=== PATIENT | male | born 1975 | race Caucasian/White ===

== ENCOUNTER 2021-05-10 12:48 | Emergency (ER) | payer OTHER ==
--- OUTSIDE RECORDS SUMMARY | 2021-05-10 12:53 | XMS REPORT | Continuity of Care Document ---
:1975 Author Organization [facility] t Address [address] [place] [address] Care Team Providers Name Role Phone PCP, DOES NOT HAVE A Primary Care Physician Unavailable EBRAHIM Attending Clinician Unavailable Doctor Unassigned, Name Attending Clinician Unavailable SONG Attending Clinician Unavailable Payers Payer Name Policy Type Policy Number Effective Date Expiration Date Wilma SAWYER II [id number] 2021 00:00:00 Problems Condition Condition Condition Status Onset Resolution Last Treating Co mments Source Name Details Category Date Date Treatment Clinician Date No known No known Disease Unive rs active active ity of problems problems [facility] Allergies, Adverse Reactions, Alerts Allergy Allergy Status Severity Reaction(s) Onset Inactive Treating Comm ents Source Name Type Date Date Clinician NO KNOWN Drug Active Univers ALLERGIE Class ity of [facility] Social History Social Habit Start Date Stop Date Quantity Comments Source Exposure to Not sure [facility] SARS-CoV-2 [facility] (event) Tobacco use and 2021-05-07 2021-05-07 Current user [facility] exposure 00:00:00 00:00:00 Medical Branch Sex Assigned At [birth year] [facility] 00:00:00 00:00:00 Medical Branch Smoking Status Start Date Stop Date Source Former smoker 2021-05-07 00:00:00 2021-05-07 00:00:00 [facility] Medications Ordered Filled Start Stop Current Ordering Indication Dosage Frequency Signature Comments Components Source Medication Medication Date Date Medication? Clinician (SIG) Name Name chlorhexidi Yes [id number] Apply to [facility] 4 % 2-22 [id number] area(s) ity of external 00:00: once daily [facility] as liquid 00 as needed Medical for Wound Branch care. doxycycline Yes [id number] 100mg Take 1 Univers hyclate 100 -05-22 [id number] tablet by ity of mg tablet 00:00: 05:[place] [facility] daily for 14 days. Procedures Procedure Date / Time Performed Performing Clinician [facility] e ASSIGNMENT OF BENEFITS 2021-05-10 16:53:58 Doctor Unassigned, No [facility] Encounters Start End Encounter Admission Attending Care Care Encounter Source Date/Time Date/Time Type Type Clinicians Facility Department ID 2021-05-10 2021-05-10 Outpatient R WILLIAM [facility] [id number] Univers 11:00:00 11:00:00 [facility] 2021-05-10 2021-05-10 Outpatient R [facility] [id number] Univers 11:00:00 11:00:00 [id number] [facility] 2021-05-10 2021-05-10 [facility] [id number] Univers 11:00:00 11:00:00 [facility] 2021-05-10 2021-05-10 Orders Doctor SEGAL [id number] Univers 00:00:00 00:00:00 Only Unassigned, DIANA [id number] ity [facility] [id number] [facility] as [id number] [place] [address] Branch 2021-05-07 2021-05-07 [facility] [id number] Univers 15:00:00 15:19:30 DAVID [facility] Results This patient has no known results.
[2021-05-10 13:45] LABS: Absolute Lymphocytes (CBC) 3.2 K/uL (0.7-4.9); Hematocrit 49.6 % (39.6-49.0); Lymphocytes % 27.4 % (15.3-44.8); MPV 8.4 fL (7.6-11.3); RBC Red Blood Cell Count 5.69 M/uL (4.33-5.43)
--- NOTE | 2021-05-10 13:51 | RAD REPORT ---
EXAM DESCRIPTION: RAD - Foot Left 3 View - 05/10/2021 1:41 pm CLINICAL HISTORY: PAIN COMPARISON: <Comparisons> FINDINGS: No acute fracture. No malalignment. Calcaneal spurring IMPRESSION: No acute osseous abnormality involving the left foot.
[2021-05-10 13:57] LABS: Albumin 4.1 g/dL (3.4-5.0); Bilirubin Total 0.6 mg/dL (0.2-1.0); Potassium 3.8 mmol/L (3.5-5.1); Protein, Total 8.3 g/dL (6.4-8.2)
[2021-05-10] MEDS ORDERED: CLINDAMYCIN 600MG/D5W 600 MG/50 ML BAG IV ONE (14:00)
[2021-05-10] MEDS ORDERED: NA CHLORIDE 0.9% 1,000 ML ONE (14:13)
--- NOTE | 2021-05-10 14:35 | ER ---
Nurse's Notes [facility] Name: Varun Arteaga Age: 45 yrs Sex: Male : 1975 Arrival Date: 05/10/2021 Time: 12:50 Bed 2 Private MD: Diagnosis: Cellulitis of unspecified toe-Right foot Presentation: 05/10 13:03 Chief complaint: Patient states: Wound to middle toe on right foot and bottom of left jl7 foot, clinic prescribed doxycycline 3 days ago and it's just gotten worse. Coronavirus screen: At this time, the client does not indicate any symptoms associated with coronavirus-19. Ebola Screen: No symptoms or risks identified at this time. Initial Sepsis Screen: Does the patient meet any 2 criteria? No. Patient's initial sepsis screen is negative. Does the patient have a suspected source of infection? No. Patient's initial sepsis screen is negative. Risk Assessment: Do you want to hurt yourself or someone else? Patient reports no desire to harm self or others. Onset of symptoms was May 03, 2021. 13:03 Method Of Arrival: Ambulatory [facility] 13:03 Acuity: REMEDIOS 3 jl7 Triage Assessment: 13:04 General: Appears in no apparent distress. uncomfortable, Behavior is calm, cooperative, jl7 appropriate for age. Pain: Complains of pain in right foot and left foot Pain currently is 4 out of 10 on a pain scale. Historical: - Allergies: 13:04 No Known Allergies; jl7 - Home Meds: 13:04 lisinopril 40 mg Oral tab [Active]; jl7 - PMHx: 13:04 Hypertensive disorder; Gout; jl7 - PSHx: 13:04 None; jl7 - Immunization history:: Client reports having NOT received the Covid vaccine. - Social history:: Smoking status: Patient reports use of chewing tobacco. - Family history:: not pertinent. Screenin:26 Abuse screen: Denies threats or abuse. Nutritional screening: No deficits noted. vg1 Tuberculosis screening: No symptoms or risk factors identified. Fall Risk No fall in past 12 months (0 pts). No secondary diagnosis (0 pts). IV access (20 points). Ambulatory Aid- None/Bed Rest/Nurse Assist (0 pts). Gait- Normal/Bed Rest/Wheelchair (0 pts) Mental Status- Oriented to own ability (0 pts). Total Ritter Fall Scale indicates No Risk (0-24 pts). Assessment: 13:23 General: Appears in no apparent distress. comfortable, Behavior is calm, cooperative. vg1 Pain: Complains of pain in ball of left foot and Right middle toe Pain currently is 4 out of 10 on a pain scale. Pain began x 1 week. Neuro: Level of Consciousness is awake, alert, obeys commands, Oriented to person, place, time, situation. Cardiovascular: Patient's skin is warm and dry. Respiratory: Airway is patent Respiratory effort is even, unlabored. GI: No signs and/or symptoms were reported involving the gastrointestinal system. : No signs and/or symptoms were reported regarding the genitourinary system. EENT: No signs and/or symptoms were reported regarding the EENT system. Derm: Wound noted ball of left foot Bruising that is dark purple, on right third toe and Right third toenail. Musculoskeletal: Circulation, motion, and sensation intact. 14:23 Reassessment: Patient appears in no apparent distress at this time. No changes from vg1 previously documented assessment. Patient and/or family updated on plan of care and expected duration. Pain level reassessed. Patient is alert, oriented x 3, equal unlabored respirations, skin warm/dry/pink. 14:35 Reassessment: pt up for d/c; currently waiting for IV fluids to complete. vg1 Vital Signs: 13:03 BP 140 / 97; Pulse 105; Resp 17; Temp 98.2; Pulse Ox 95% ; Weight 133.81 kg; Height 5 jl7 ft. 11 in. (180.34 cm); Pain 4/10; 14:30 BP 148 / 91; Pulse 92; Resp 16; Pulse Ox 98% on R/A; vg1 15:15 BP 135 / 95; Pulse 90; Resp 16; Pulse Ox 98% ; vg1 13:03 Body Mass Index 41.14 (133.81 kg, 180.34 cm) jl7 ED Course: 12:50 Patient arrived in ED. mr 12:55 Reena Amos MD is Attending Physician. ma2 13:04 Triage completed. jl7 13:04 Arm band placed on right wrist. jl7 13:06 Laure Nicole, DEANN is Primary Nurse. vg1 13:26 Patient has correct armband on for positive identification. Bed in low position. Call vg1 light in reach. Side rails up X 1. 13:26 No provider procedures requiring assistance completed. Initial lab(s) drawn, by me, vg1 sent to lab. Inserted saline lock: 20 gauge in right antecubital area, using aseptic technique. Blood collected. 13:41 Foot Left 3 View XRAY In Process Unspecified. EDOK 14:35 Ancelmo Willard MD is Referral Physician. ma2 15:25 IV discontinued, intact, bleeding controlled, No redness/swelling at site. Pressure vg1 dressing applied. Administered Medications: 14:01 Drug: Clindamycin 600 mg Route: IVPB; Infused Over: 30 mins; Site: right antecubital; vg1 14:30 Follow up: IV Status: Completed infusion; IV Intake: 50ml vg1 14:14 Drug: NS 0.9% 1000 ml Route: IV; Rate: 1 bolus; Site: right antecubital; vg1 15:17 Follow up: IV Status: Completed infusion; IV Intake: 1000ml vg1 Intake: 14:30 IV: 50ml; Total: 50ml. vg1 15:17 IV: 1000ml; Total: 1050ml. vg1 Outcome: 14:35 Discharge ordered by . ma2 15:25 Discharged to home ambulatory. vg1 15:25 Condition: good 15:25 Discharge instructions given to patient, Instructed on discharge instructions, follow up and referral plans. medication usage, Demonstrated understanding of instructions, follow-up care, medications, Prescriptions given X 2. 15:26 Patient left the ED. vg1 Signatures: Dispatcher [employer] [facility] Delia Morton Jahala, RN RN cheryl7 Reena Amos MD MD ma2 Garcia, Victoria, RN RN vg1
--- NOTE | 2021-05-10 14:35 | EDPHYS ---
Physician Documentation [facility] Name: Varun Arteaga Age: 45 yrs Sex: Male : 1975 Arrival Date: 05/10/2021 Time: 12:50 Bed 2 Private MD: ED Physician Reena Amos HPI: 05/10 13:54 This 45 yrs old Male presents to ER via Ambulatory with complaints of Feet Infection. ma2 13:54 45-year-old male history of hypertension, patient had cellulitis of tip of right third ma2 t toe for 4 days, he saw PCP 2 days ago was prescribed doxycycline 100 twice daily, however there was no improvement so he returned to the ER today, patient does not have fever chills or palpitation, no history of diabetes, he also states he has a puppy that keep biting on that toe and he thinks that dog bite initiated the infection. Historical: - Allergies: 13:04 No Known Allergies; jl7 - Home Meds: 13:04 lisinopril 40 mg Oral tab [Active]; jl7 - PMHx: 13:04 Hypertensive disorder; Gout; jl7 - PSHx: 13:04 None; jl7 - Immunization history:: Client reports having NOT received the Covid vaccine. - Social history:: Smoking status: Patient reports use of chewing tobacco. - Family history:: not pertinent. ROS: 13:54 MS/extremity: Negative for contusion, decreased range of motion, deformity, ma2 paresthesias, tingling, warmth. 13:54 Constitutional: Negative for fever, chills, and weight loss. 13:54 All other systems are negative. Exam: 13:54 Constitutional: This is a well developed, well nourished patient who is awake, alert, ma2 and in no acute distress. Head/Face: Normocephalic, atraumatic. Eyes: Pupils equal round and reactive to light, extra-ocular motions intact. Lids and lashes normal. Conjunctiva and sclera are non-icteric and not injected. Cornea within normal limits. Periorbital areas with no swelling, redness, or edema. ENT: Nares patent. No nasal discharge, no septal abnormalities noted. Tympanic membranes are normal and external auditory canals are clear. Oropharynx with no redness, swelling, or masses, exudates, or evidence of obstruction, uvula midline. Mucous membranes moist. Neck: Trachea midline, no thyromegaly or masses palpated, and no cervical lymphadenopathy. Supple, full range of motion without nuchal rigidity, or vertebral point tenderness. No Meningismus. Chest/axilla: Normal chest wall appearance and motion. Nontender with no deformity. No lesions are appreciated. Cardiovascular: Regular rate and rhythm with a normal S1 and S2. No gallops, murmurs, or rubs. Normal PMI, no JVD. No pulse deficits. Respiratory: Lungs have equal breath sounds bilaterally, clear to auscultation and percussion. No rales, rhonchi or wheezes noted. No increased work of breathing, no retractions or nasal flaring. Abdomen/GI: Soft, non-tender, with normal bowel sounds. No distension or tympany. No guarding or rebound. No evidence of tenderness throughout. Back: No spinal tenderness. No costovertebral tenderness. Full range of motion. Skin: Warm, dry with normal turgor. Normal color with no rashes, no lesions, and no evidence of cellulitis. MS/ Extremity: Area of redness on top of right third toe, it is red no fluctuance, no pus, no signs of gangrene, area is tender as well. Otherwise pulses equal, no cyanosis. Neurovascular intact. Full, normal range of motion. Neuro: Awake and alert, GCS 15, oriented to person, place, time, and situation. Cranial nerves II-XII grossly intact. Motor strength 5/5 in all extremities. Sensory grossly intact. Cerebellar exam normal. Normal gait. Vital Signs: 13:03 BP 140 / 97; Pulse 105; Resp 17; Temp 98.2; Pulse Ox 95% ; Weight 133.81 kg; Height 5 jl7 ft. 11 in. (180.34 cm); Pain 4/10; 14:30 BP 148 / 91; Pulse 92; Resp 16; Pulse Ox 98% on R/A; vg1 15:15 BP 135 / 95; Pulse 90; Resp 16; Pulse Ox 98% ; vg1 13:03 Body Mass Index 41.14 (133.81 kg, 180.34 cm) 7 MDM: 12:55 Patient medically screened. ma2 13:58 Differential diagnosis: sprain, arthritis, gout, cellulitis. Data reviewed: vital ma2 signs, nurses notes. Counseling: I had a detailed discussion with the patient and/or guardian regarding: the historical points, exam findings, and any diagnostic results supporting the discharge/admit diagnosis, the presence of at least one elevated blood pressure reading (>120/80) during this emergency department visit, the need for outpatient follow up. Response to treatment: the patient's symptoms have markedly improved after treatment. 14:32 ED course: Patient has mild elevation white count, initially was tachycardic to 105, ma2 however pulse is 70 at this time patient does not have SIRS based on that. As noted in exam toe is not gangrenous, I explained to him the fact that white count is mildly elevated, he received IV clindamycin IV here, I offered to admit him for observation give him more doses of IV antibiotics, and recheck white count, and have orthopedic consult, although patient does not need amputation of toe at this time. However patient states he does not want to be admitted, he will take both antibiotics at home and keep a close eye on the toe, return to ER if there is no improvement in 2 days. And he will follow-up with orthopedic regardless in the next 2 days. I gave strict return precautions. 05/10 12:55 Order name: CBC with Diff; Complete Time: 13:52 [facility] 05/10 12:55 Order name: CMP; Complete Time: 14:05 mo2 05/10 12:56 Order name: Foot Left 3 View XRAY; Complete Time: 13:52 ma2 Administered Medications: 14:01 Drug: Clindamycin 600 mg Route: IVPB; Infused Over: 30 mins; Site: right antecubital; vg1 14:30 Follow up: IV Status: Completed infusion; IV Intake: 50ml vg1 14:14 Drug: NS 0.9% 1000 ml Route: IV; Rate: 1 bolus; Site: right antecubital; vg1 15:17 Follow up: IV Status: Completed infusion; IV Intake: 1000ml vg1 Disposition Summary: 05/10/21 14:35 Discharge Ordered Location: Home ma2 Condition: Stable ma2 Diagnosis - Cellulitis of unspecified toe - Right foot ma2 Followup: ma2 - With: - When: Tomorrow - Reason: If symptoms return, Continuance of care Discharge Instructions: - Discharge Summary Sheet ma2 - Cellulitis, Adult, [id number] ma2 Forms: - Medication Reconciliation Form ma2 - Thank You Letter ma2 - Antibiotic Education ma2 - Prescription Opioid Use ma2 - Work release form vg1 Prescriptions: - Augmentin 875-125 mg Oral Tablet - take 1 tablet by ORAL route every 12 hours for 10 days; 20 tablet; Refills: 0, ma2 Product Selection Permitted - Clindamycin HCl 300 mg Oral Capsule - take 1 capsule by ORAL route every 6 hours for 10 days; 40 capsule; Refills: 0, ma2 Product Selection Permitted Signatures: Dispatcher [employer] Channing Jenkins RN RN jl7 Reena Amos MD MD ma2 Laure Nicole RN RN vg1
[2021-05-10 15:52] VITALS: TEMP 98.2
[2021-05-10 15:53] VITALS: O2SAT 98
[2021-05-10 15:54] VITALS: BP 135/95
== END 2021-05-10 15:26 | disposition home or self-care (01) ==
LOC: ER 12:48
DX: L03.031 Cellulitis of right toe (principal); I10 Essential (primary) hypertension; F17.220 Nicotine dependence, chewing tobacco, uncomplicated
CPT/HCPCS: 96365; 96361; 85025; 36415; 80053; 73630; 99284; J7030

== ENCOUNTER 2021-05-17 16:12 | Emergency (ER) | payer OTHER ==
--- OUTSIDE RECORDS SUMMARY | 2021-05-17 16:15 | XMS REPORT | Continuity of Care Document ---
:1975 Author Organization [facility] t Address [address] [place] [address] Care Team Providers Name Role Phone PCP, DOES NOT HAVE A Primary Care Physician Unavailable FELA, A Attending Clinician Unavailable WILLIAM Attending Clinician Unavailable Doctor Unassigned, Name Attending Clinician Unavailable ROBBY Attending Clinician Unavailable Payers Payer Name Policy Type Policy Number Effective Date Expiration Date Wilma SAWYER II [id number] 2021 00:00:00 Problems Condition Condition Condition Status Onset Resolution Last Treating Co mments Source Name Details Category Date Date Treatment Clinician Date No known No known Disease Unive rs active active ity of problems problems [facility] Allergies, Adverse Reactions, Alerts Allergy Allergy Status Severity Reaction(s) Onset Inactive Treating Comm ents Source Name Type Date Date Clinician NO KNOWN Drug Active Univers ALLERGIE Class ity of [facility] Social History Social Habit Start Date Stop Date Quantity Comments Source Exposure to Not sure [facility] SARS-CoV-2 [facility] (event) Tobacco use and 2021-05-07 2021-05-07 Current user [facility] exposure 00:00:00 00:00:00 Medical Branch Sex Assigned At [birth year] [facility] 00:00:00 00:00:00 Medical Branch Smoking Status Start Date Stop Date Source Former smoker 2021-05-07 00:00:00 2021-05-07 00:00:00 [facility] Medications Ordered Filled Start Stop Current Ordering Indication Dosage Frequency Signature Comments Components Source Medication Medication Date Date Medication? Clinician (SIG) Name Name chlorhexidi Yes [id number] Apply to [facility] 4 % 2- [id number] area(s) ity of external 00:00: once daily [facility] as liquid 00 as needed Medical for Wound Branch care. doxycycline 2021- Yes [id number] 100mg Take 1 Univers hyclate 100 05-07 [id number] tablet by ity of mg tablet 00:00: 05:59 [place] (two[place] Medical times [place] daily for 14 days. Procedures Procedure Date / Time Performed Performing Clinician [facility] e ASSIGNMENT OF BENEFITS 2021-05-10 16:53:58 Doctor Unassigned, No [facility] Encounters Start End Encounter Admission Attending Care Care Encounter Source Date/Time Date/Time Type Type Clinicians Facility Department ID 2021-06-24 2021-06-24 Outpatient R FELA [facility] [id number] Univers 15:30:00 15:30:00 KEARA [id number] [facility] 2021-05-10 2021-05-10 [facility] [id number] Univers 11:00:00 11:00:00 [facility] 2021-05-10 2021-05-10 Outpatient R [facility] [id number] Univers 11:00:00 11:00:00 [id number] [facility] 2021-05-10 2021-05-10 [facility] [id number] Univers 11:00:00 11:00:00 [facility] 2021-05-10 2021-05-10 Orders Doctor SEGAL [id number] Univers 00:00:00 00:00:00 Only Unassigned, DIANA [id number] [facility] [id number] [facility] as [phone] [place] [address] Branch 2021-05-07 2021-05-07 [facility] [id number] Univers 15:00:00 15:19:30 DAVID [facility] Results This patient has no known results.
--- NOTE | 2021-05-17 17:13 | ER ---
Nurse's Notes [facility] Name: Varun Arteaga Jr Age: 45 yrs Sex: Male : 1975 Arrival Date: 05/17/2021 Time: 16:16 Bed 19 Private MD: Diagnosis: Cellulitis of left lower limb-foot;Cellulitis of right lower limb-foot Presentation: 05/17 16:32 Chief complaint: Patient states: Bilateral foot wounds that are getting worse. Was seen ww here last week for same complaint and he thought they were getting better but now getting worse and spreading in different spots. Coronavirus screen: Client denies travel out of the [place] in the last 14 days. Ebola Screen: Patient denies travel to an Ebola-affected area in the 21 days before illness onset. Initial Sepsis Screen: Does the patient meet any 2 criteria? No. Patient's initial sepsis screen is negative. Does the patient have a suspected source of infection? No. Patient's initial sepsis screen is negative. Risk Assessment: Do you want to hurt yourself or someone else? Patient reports no desire to harm self or others. Onset of symptoms is unknown. 16:32 Method Of Arrival: Ambulatory ww 16:32 Acuity: REMEDIOS 3 ww Triage Assessment: 16:34 General: Appears uncomfortable, Behavior is calm, cooperative. Pain: Complains of pain ww in right foot and left foot. Neuro: Level of Consciousness is awake, alert, obeys commands, Oriented to person, place, time, situation, Speech is normal. Cardiovascular: Capillary refill < 3 seconds. Respiratory: Airway is patent Respiratory effort is even, unlabored, Respiratory pattern is regular, symmetrical. GI: No signs and/or symptoms were reported involving the gastrointestinal system. : No signs and/or symptoms were reported regarding the genitourinary system. Historical: - Allergies: 16:34 No Known Allergies; ww - Home Meds: 16:34 lisinopril 40 mg Oral tab [Active]; ww - PMHx: 16:34 Gout; Hypertensive disorder; ww - PSHx: 16:34 Appendectomy; Cholecystectomy; right ear; ww - Immunization history:: Adult Immunizations up to date. - Social history:: Smoking status: Patient/guardian denies using tobacco. Screenin:54 Abuse screen: Denies threats or abuse. Denies injuries from another. Nutritional ab2 screening: No deficits noted. Tuberculosis screening: No symptoms or risk factors identified. Fall Risk None identified. Assessment: 16:54 General: Appears in no apparent distress. comfortable, Behavior is calm, cooperative, ab2 appropriate for age. Pain: Complains of pain in right foot and left foot. Neuro: Level of Consciousness is awake, alert, obeys commands, Oriented to person, place, time, situation, Appropriate for age Agent Broker are equal bilaterally Moves all extremities. Cardiovascular: No deficits noted. Denies chest pain, shortness of breath, Heart tones S1 S2 present Patient's skin is warm and dry. Respiratory: No deficits noted. Airway is patent Respiratory effort is even, unlabored, Respiratory pattern is regular, symmetrical. GI: No deficits noted. No signs and/or symptoms were reported involving the gastrointestinal system. : No deficits noted. No signs and/or symptoms were reported regarding the genitourinary system. EENT: No deficits noted. No signs and/or symptoms were reported regarding the EENT system. Derm: Skin is pink, warm \T\ dry. Vital Signs: 16:32 BP 136 / 88; Pulse 92; Resp 19; Temp 97.5; Pulse Ox 93% on R/A; Weight 133.81 kg; ww Height 5 ft. 11 in. (180.34 cm); Pain 5/10; 16:32 Body Mass Index 41.14 (133.81 kg, 180.34 cm) ww ED Course: 16:16 Patient arrived in ED. am2 16:34 Triage completed. ww 16:34 Arm band placed on left wrist. ww 16:37 Bam Wilder PA is [facility]. cp 16:37 Bam Diaz MD is Attending Physician. cp 16:53 Clement Joseph is Primary Nurse. ab2 17:39 Patient has correct armband on for positive identification. Call light in reach. Side ww rails up X 1. 17:39 No provider procedures requiring assistance completed. intact, bleeding controlled, No ww redness/swelling at site. Pressure dressing applied. Administered Medications: No medications were administered Outcome: 17:12 Discharge ordered by . cp 17:39 Discharged to home ambulatory. ww 17:39 Condition: stable 17:39 Discharge instructions given to patient, Instructed on discharge instructions, follow up and referral plans. safety practices, Demonstrated understanding of instructions, follow-up care, medications, Prescriptions given X 2. 17:40 Patient left the ED. ww Signatures: Bam Wilder PA PA cp Moreno, Amanda am2 Wood, Whitney, RN RN Clement Tejada
--- NOTE | 2021-05-17 17:13 | EDPHYS ---
Physician Documentation [facility] Name: Varun Arteaga Jr Age: 45 yrs Sex: Male : 1975 Arrival Date: 05/17/2021 Time: 16:16 Bed 19 Private MD: ED Physician Bam Diaz HPI: 05/17 17:03 This 45 yrs old Male presents to ER via Ambulatory with complaints of Wound Recheck - cp both feet. 17:03 Patient presents to ED for recheck of: cellulitis. The affected area is on the left cp foot and right foot. Previous treatment: the care was rendered at [facility], Treatment type: The patient's original treatment included oral antibiotics, Augmentin and Clindamycin. Progress: The patient reports Patient reports infection of right second toe is improving. Historical: - Allergies: 16:34 No Known Allergies; ww - Home Meds: 16:34 lisinopril 40 mg Oral tab [Active]; ww - PMHx: 16:34 Gout; Hypertensive disorder; ww - PSHx: 16:34 Appendectomy; Cholecystectomy; right ear; ww - Immunization history:: Adult Immunizations up to date. - Social history:: Smoking status: Patient/guardian denies using tobacco. ROS: 17:10 Constitutional: Negative for body aches, chills, fever, poor PO intake. cp 17:10 ENT: Negative for ear pain, sore throat, difficulty swallowing, difficulty handling secretions. 17:10 Cardiovascular: Negative for chest pain. 17:10 Respiratory: Negative for cough, shortness of breath, wheezing. 17:10 Abdomen/GI: Negative for abdominal pain, nausea, vomiting, and diarrhea. 17:10 Back: Negative for pain at rest, pain with movement. 17:10 Skin: Positive for cellulitis, of the right foot and left foot. 17:10 All other systems are negative. Exam: 17:11 Constitutional: The patient appears in no acute distress, alert, awake, cp non-diaphoretic, non-toxic, well developed, well nourished, obese. 17:11 Head/Face: Normocephalic, atraumatic. cp 17:11 Chest/axilla: Inspection: normal. 17:11 Cardiovascular: Rate: normal, Pulses: Pulses are 2+ in right dorsalis pedis artery and left dorsalis pedis artery. Edema: is not appreciated. 17:11 Respiratory: the patient does not display signs of respiratory distress, Respirations: normal. 17:11 Abdomen/GI: Inspection: abdomen appears normal, Palpation: abdomen is soft and non-tender, in all quadrants. 17:11 Skin: cellulitis, that is moderate, well demarcated, on the right second toe, multiple areas of erythema with small pustules noted to bilateral feet. Vital Signs: 16:32 BP 136 / 88; Pulse 92; Resp 19; Temp 97.5; Pulse Ox 93% on R/A; Weight 133.81 kg; ww Height 5 ft. 11 in. (180.34 cm); Pain 5/10; 16:32 Body Mass Index 41.14 (133.81 kg, 180.34 cm) ww MDM: 16:41 Patient medically screened. cp 17:12 Data reviewed: vital signs, nurses notes. cp 17:12 Differential diagnosis: cellulitis, absecss. Counseling: I had a detailed discussion cp with the patient and/or guardian regarding: the historical points, exam findings, and any diagnostic results supporting the discharge/admit diagnosis, to return to the emergency department if symptoms worsen or persist or if there are any questions or concerns that arise at home. 05/17 16:55 Order name: Wound Care cp Administered Medications: No medications were administered Disposition Summary: 05/17/21 17:12 Discharge Ordered Location: Home cp Problem: an ongoing problem cp Symptoms: have improved cp Condition: Stable cp Diagnosis - Cellulitis of left lower limb - foot cp - Cellulitis of right lower limb - foot cp Followup: cp - With: Emergency Department - When: As needed - Reason: Worsening of condition Discharge Instructions: - Discharge Summary Sheet cp - Cellulitis, Adult cp Forms: - Medication Reconciliation Form cp - Work release form iw - Thank You Letter cp - Antibiotic Education cp - Prescription Opioid Use cp Prescriptions: - Clotrimazole 1 % Topical Cream - Apply to affected area 1 application by TOPICAL route every 12 hours; 30 gram; cp Refills: 0, Product Selection Permitted - Bactrim DS 800-160 mg Oral Tablet - take 1 tablet by ORAL route every 12 hours for 10 days; 20 tablet; Refills: 0, cp Product Selection Permitted Signatures: Bam Wilder PA PA cp Wood, Whitney, RN RN ww
[2021-05-17 17:44] VITALS: BP 136/88; TEMP 97.5; O2SAT 93
== END 2021-05-17 17:40 | disposition home or self-care (01) ==
LOC: ER 16:12
DX: L03.116 Cellulitis of left lower limb (principal); L03.115 Cellulitis of right lower limb; I10 Essential (primary) hypertension
CPT/HCPCS: 99282